=== PATIENT | female | born 1965 | race Caucasian/White ===

== ENCOUNTER 2016-09-11 11:26 | Inpatient (IN) | payer MEDICARE, MEDICAID ==
[~2016-09-11] VITALS: Ht 160 cm; Wt 112.6 kg
[~2016-09-11 11:26] MED LIST: ASCO-96 PO; CEFAZOLIN 1,000 MG ONE; DEXAMETHASONE 4 MG/ML, 1ML ONE; HYDR-3307 PO; LANS30CA16 PO; LEVO125T5 PO; ONDA4TAB7 PO; ONDANSETRON 2MG/ML, 2ML ONE; PHEN37.53 PO; PROG100C4 PO; PROPOFOL 10 MG/ML, 20ML ONE; SUCCINYLCHOLINE 20 MG/ML, 10ML ONE; TIMO10TA PO
[2016-09-11] MEDS ORDERED: BACITRACIN OINT 500U/GM, 15 GM ONE (12:17)
[2016-09-11] MEDS ORDERED: EPINEPHRINE 1 MG/ML, 1ML ONE (12:17)
[2016-09-11] MEDS ORDERED: THROMBIN 5,000 UNIT VIAL TP ONE (12:17)
[2016-09-11] MEDS ORDERED: BUPIVACAINE/PF 0.5% ONE (12:17)
[2016-09-11] MEDS ORDERED: LACTATED RINGERS 1,000 ML IV SCH (12:19)
[2016-09-11] MEDS ORDERED: LIDOCAINE 1%, 2ML SQ PRN (12:30)
[2016-09-11] MEDS ORDERED: PNEUMOCOCCAL 23 VACCINE IM-VACC ONE (13:00)
[2016-09-11] MEDS ORDERED: FENTANYL PF 250 MCG/5ML ONE (13:13)
[2016-09-11] MEDS ORDERED: KETAMINE 10 MG/ML, 20ML ONE (13:13)
[2016-09-11] MEDS ORDERED: MIDAZOLAM 1 MG/ML, 2ML ONE ×2 (13:14→15:44)
[2016-09-11] MEDS ORDERED: HYDROmorphone 1 MG/ML, 1ML ONE ×3 (13:51→17:31)
[2016-09-11] MEDS ORDERED: CYCLOBENZAPRINE 10 MG TABLET PO PRN (14:00)
[2016-09-11] MEDS ORDERED: HYDROcodone/APAP 5/325 TABLET PO PRN (14:00)
[2016-09-11] MEDS ORDERED: MAGNESIUM HYDROXIDE 8%, 30ML UDC PO PRN (14:00)
[2016-09-11] MEDS ORDERED: PHARMACY MAY ADJ FOR RENAL FX MC PRN (14:00)
[2016-09-11] MEDS ORDERED: morphine SULFATE 10 MG/ML, 1ML IVPush PRN ×2 (14:00→18:50)
[2016-09-11] MEDS ORDERED: TIMOLOL PO PRN (14:00)
[2016-09-11] MEDS ORDERED: ONDANSETRON 2MG/ML, 2ML IVPush PRN ×2 (14:00→14:30)
[2016-09-11] MEDS ORDERED: BISACODYL 10 MG SUPP PR PRN (14:00)
[2016-09-11] MEDS ORDERED: SENNA/DOCUSATE TABLET PO PRN (14:00)
[2016-09-11] MEDS ORDERED: OXYcodone 5 MG/5 ML ORAL.SOL UDC PO PRN (14:30)
[2016-09-11] MEDS ORDERED: MIDAZOLAM 1 MG/ML, 2ML IV PRN (14:30)
[2016-09-11] MEDS ORDERED: MEPERIDINE/PF 25MG/0.5ML IVPush PRN (14:30)
[2016-09-11] MEDS ORDERED: DIAZEPAM 5 MG/ML, 2ML IV ONE (14:30)
[2016-09-11] MEDS ORDERED: hydrALAzine 20 MG/ML, 1ML IV PRN (14:30)
[2016-09-11] MEDS ORDERED: LABETALOL 5MG/ML, 20ML IV PRN (14:30)
[2016-09-11] MEDS ORDERED: HYDROcodone/APAP 7.5-325MG/15ML UDC PO PRN (14:30)
[2016-09-11] MEDS ORDERED: ALBUTEROL/IPRATROPIUM 2.5MG/0.5MG, 3 ML NPPB PRN (14:30)
[2016-09-11] MEDS ORDERED: METOCLOPRAMIDE 5 MG/ML, 2ML IV PRN (14:30)
[2016-09-11] MEDS ORDERED: HYDROmorphone 2 MG/ML, 1ML ONE (15:45)
[2016-09-11] MEDS ORDERED: FENTANYL PF 100 MCG/2ML ONE ×2 (15:45→16:57)
[2016-09-11] MEDS ORDERED: LORazepam 2 MG/ML, 1ML ONE (15:46)
[2016-09-11] MEDS: HYDROmorphone 1 MG/ML, 1ML IV PRN ×5 (15:51→17:28)
[2016-09-11] MEDS: FENTANYL PF 100 MCG/2ML IV PRN ×4 (15:58→17:19)
[2016-09-11] MEDS ORDERED: OXYcodone 5 MG/5 ML ORAL.SOL UDC ONE (16:58)
[2016-09-11 17:55] VITALS: BP 112/75
[2016-09-11] MEDS ORDERED: CEFAZOLIN PMX 1GM/50ML 50 ML IVPB SCH (18:00)
[2016-09-11] MEDS: LEVOTHYROXINE 125 MCG TABLET PO SCH (18:15)
[2016-09-11] MEDS ORDERED: DIAZEPAM 5 MG/ML, 10ML VIAL IV PRN (18:30)
[2016-09-11 20:23] VITALS: BP 112/62
[2016-09-11] MEDS: D5%-0.9% NACL+KCL 20MEQ 1,000 ML IV SCH (21:12)
[2016-09-11] MEDS: CEFAZOLIN PMX 1GM/50ML 50 ML IVPB SCH (21:12)
[2016-09-11] MEDS: OXYcodone/APAP 5/325MG TABLET PO PRN (21:12)
[2016-09-12 00:05] VITALS: BP 100/59
[2016-09-12] MEDS: OXYcodone/APAP 5/325MG TABLET PO PRN ×3 (01:20→09:52)
[2016-09-12 04:23] VITALS: BP 96/56
[2016-09-12] MEDS: CEFAZOLIN PMX 1GM/50ML 50 ML IVPB SCH (05:47)
[2016-09-12 07:16] VITALS: BP 94/47
[2016-09-12] MEDS ORDERED: PANTOPROZOLE 40MG TABLET PO SCH (07:30)
[2016-09-12] MEDS: LEVOTHYROXINE 125 MCG TABLET PO SCH (08:31)
[2016-09-12] MEDS: D5%-0.9% NACL+KCL 20MEQ 1,000 ML IV SCH (08:32)
[2016-09-12] MEDS ORDERED: TEMPLATE NON-FORMULARY MED. (Lansoprazole** (Prevacid**) 30 MG) PO SCH (09:00)
[2016-09-20] MEDS ORDERED: GABA100C PO (16:04)
[2016-09-20] MEDS ORDERED: OXYC-229 PO (16:04)
[2016-09-20] MEDS ORDERED: ONDA4TAB7 PO (16:04)
== END 2016-09-12 10:20 | disposition home or self-care (01) | DRG 460 ==
LOC: ORIP 11:26 → 4NOR 17:46 → DCLOUNGE 09-12 10:07
PROVIDERS: ADMIT Orthopaedic Surgery Orthopaedic Surgery of the Spine; ATTEND Orthopaedic Surgery Orthopaedic Surgery of the Spine
PROC: 0SB23ZZ Excision of Lumbar Vertebral Disc, Percutaneous Approach (ICD-10-PCS; 2016-09-11)
PROC: 4A11X4G Monitoring of Peripheral Nervous Electrical Activity, Intraoperative, External Approach (ICD-10-PCS; 2016-09-11)
PROC: 0SG03AJ Fusion of Lumbar Vertebral Joint with Interbody Fusion Device, Posterior Approach, Anterior Column, Percutaneous Approach (ICD-10-PCS; principal; 2016-09-11 13:00)
DX: M48.06 Spinal stenosis, lumbar region (principal); Z68.41 Body mass index [BMI] 40.0-44.9, adult; M19.90 Unspecified osteoarthritis, unspecified site; K21.9 Gastro-esophageal reflux disease without esophagitis; F17.200 Nicotine dependence, unspecified, uncomplicated; E03.9 Hypothyroidism, unspecified; Z88.6 Allergy status to analgesic agent; Z88.8 Allergy status to other drugs, medicaments and biological substances; Z72.89 Other problems related to lifestyle
CPT/HCPCS: 36415; 72100; 85025; 90732; C1713; J0171; J0690; J1100; J1170; J2250; J2405; J2704; J3010; J3360; J3490; C1762; J0330; J2270; J3480; J7120